=== PATIENT | female | born 1960 | race Two or more races ===

== ENCOUNTER 2024-05-14 01:04 | Emergency (ER) | payer OTHER, SELFPAY ==
[2024-05-14 01:05] VITALS: BMI 29.4
[2024-05-14 01:38] VITALS: BP 144/91; PULSE 85; RESP 18; TEMP 36.8; O2SAT 97
--- NOTE | 2024-05-14 01:43 | PD.EDNECK ---
ED Neck Injury Pain RME/HPI General Chief Complaint: Neck Pain/Injury Stated Complaint: NECK PAIN X 2DAYS Time Seen by Provider: 05/14/24 01:35 Arrival date/time: 05/14/24 01:04 RME / HPI RME / HPI Narrative: Dr. Rodriguez?s Main ED Evaluation: 63yo female with a history of fibromyalgia presents to the ED for a chief complaint of neck pain x yesterday afternoon. Patient states her neck pain has been progressively getting worse, so she came in for evaluation. She denies any falls, injuries, overexertion, sleeping wrong, or using any new pillows. Patient states she takes cyclobenzaprine, prednisone and diclofenac daily to help relax her muscles. She denies any other associated symptoms. Related Data Allergies Allergy/AdvReac Type Severity Reaction Status Date / Time morphine Allergy Mild Rash Unverified 12/19/13 16:09 Penicillins Allergy Mild Rash Verified 11/20/13 10:40 UNKNOWN ANTIBIOTIC Allergy Severe Uncoded 11/20/13 09:58 Review of Systems Review of Systems Systems Reviewed: All systems reviewed, normal except as documented Narrative Review of Systems: Gen: No fever, no chills, no weight loss EYES: No discharge, no visual changes, no pain HEENT: No ear pain, no congestion, no sore throat, + neck pain PULM: No shortness of breath, no cough, no congestion CV: No chest pain, no dyspnea on exertion, no palpitations GI: No nausea, no vomiting, no diarrhea, no pain, no constipation : No frequency, no urgency, no dysuria Musc/skel: No joint pain, no back pain Skin: No rash. Warm and dry. Psyc: No hallucinations, no depression Heme/Lymph: No easy bleeding or bruising tendencies Neuro: No weakness, no headache Past Medical History Social History SMOKING STATUS: Never smoker ED Exam Narrative Physical exam: GENERAL APPEARANCE: AxOx4, generally well-appearing, no acute distress. HEENT: NC, AT. MMM. EOMI, clear conjunctiva, oropharynx clear. NECK: Supple without lymphadenopathy. Bilateral trapezius spasms and tenderness. No midline cervical tenderness. No restricted ROM. HEART: Normal rate and regular rhythm, normal S1/S1, no m/r/g LUNGS: CTAB, moving air well. No crackles or wheezes are heard. ABDOMEN: Soft, nontender, nondistended with good bowel sounds heard. BACK: No midline C/T/L spine pain or deformity, No CVAT, no obvious deformity. EXTREMITIES: Without cyanosis, clubbing or edema. MUSCULOSKELETAL: FROM of all major joints, no chest tenderness NEUROLOGICAL: Grossly nonfocal. Alert and oriented, moving all 4 extremities. CN not formally tested but appear grossly intact. Observed to ambulate with normal gait. Skin: Warm and dry without any rash. Course Quality Measures none Vital Signs Vital signs: Vital Signs Temperature 98.2 F 05/14/24 01:38 Pulse Rate 85 05/14/24 01:38 Respiratory Rate 18 05/14/24 01:38 Blood Pressure 144/91 H 05/14/24 01:38 Pulse Oximetry (%) 97 05/14/24 01:38 Oxygen Delivery Method Room Air 05/14/24 01:38 Pulse ox is 97% on room air, which is normal according to my interpretation. Neck Pain MDM Narrative MDM Narrative:: Scribe Attestation: 05/14/24 Deloris Rolle am scribing for and in the presence of Dr. Rodriguez. Patient data External records reviewed:: [facility] previous records (Per chart review, patient has no previous ED visits or admissions.) Clinical information provided by:: patient Social determinants that could affect healthcare access:: none Patient has the following chronic illnesses:: fibromyalgia How is presenting disease/condition affected by chronic disease/condition?: caused by Evaluation data The following diagnostics were reviewed and interpreted by me:: other (specify) (none) Lab and/or radiology exams considered but not ordered:: none Interpretation Summary: none Medications / Prescriptions Medications or Prescriptions considered but not ordered:: none Medication administrations:: see above Consultations Consultation(s) initiated? (list below): No Diagnosis Neck Differential Diagnosis: other (cervical strain, chronic pain, fibromyalgia) Most likely diagnosis given after review of the tests above:: see below Admission Indicated Admission indicated?: not indicated Explain why admission is indicated or not indicated:: Admission criteria not met. Admission Request Was there a request for admission?: No Disposition Plan Disposition Plan: Discharge Discharge Attestation Discharge Attestation: The patient and all family members were given an opportunity to ask questions and understood the discharge instructions. Discharge instructions specifically effects, indications for sooner follow up or return to the emergency department, and the expected course of current diagnosis. Patient condition: Stable Discharge Plan Plan Patient Disposition: HOME (Self Care) Prescriptions/Referrals Referrals: Temporary Provider,ED [Primary Care Provider] - In 1 week Problem List Clinical Impression: Strain of neck muscle Patient/Caregiver Discharge Instructions Education Materials: ED Neck Sprain or Strain Print Language: Jamaican Stand Alone Forms: Brigid Award Info., Patient Portal Info Letter
[2024-05-14] MEDS: DIAZEPAM 5 MG TABLET 10 MG PO (01:54)
[2024-05-14] MEDS: ACETAMINOPHEN 325 MG TABLET 650 MG PO (01:55)
== END 2024-05-14 01:59 | disposition home or self-care (01) ==
PROVIDERS: Emergency Provider Emergency Medicine
DX: S16.1XXA Strain of muscle, fascia and tendon at neck level, initial encounter (principal); M79.7 Fibromyalgia; X58.XXXA Exposure to other specified factors, initial encounter
CPT/HCPCS: 99282; A9270